=== PATIENT | male | born 1960 | race African-American/Black ===

== ENCOUNTER 2017-01-11 10:33 | Emergency (ER) | payer SELFPAY ==
[~2017-01-11] VITALS: Ht 167.6 cm; Wt 54.0 kg
[2017-01-11 18:31] VITALS: BP 110/70
== END 2017-01-11 18:35 | disposition home or self-care (01) ==
LOC: ED 17:21
DX: F10.229 Alcohol dependence with intoxication, unspecified (principal)
CPT/HCPCS: 99283

== ENCOUNTER 2017-03-05 06:13 | Emergency (ER) | payer MEDICAID ==
[~2017-03-05] VITALS: Ht 180.3 cm; Wt 69.0 kg
[2017-03-05 06:20] VITALS: BP 118/86
[2017-03-05] MEDS ORDERED: ACETAMINOPHEN 325 MG TABLET PO ONE (07:00)
[2017-03-05] MEDS ORDERED: ACETAMINOPHEN 325 MG TABLET ONE (07:37)
== END 2017-03-05 09:09 | disposition home or self-care (01) ==
LOC: ED 08:33
DX: S16.1XXA Strain of muscle, fascia and tendon at neck level, initial encounter (principal); M25.552 Pain in left hip; M25.511 Pain in right shoulder; G40.909 Epilepsy, unspecified, not intractable, without status epilepticus; F10.129 Alcohol abuse with intoxication, unspecified; V59.59XA Passenger in pick-up truck or van injured in collision with other motor vehicles in traffic accident, initial encounter; Y93.89 Activity, other specified; Y92.488 Other paved roadways as the place of occurrence of the external cause; Y99.8 Other external cause status
CPT/HCPCS: 72050; 99284

== ENCOUNTER 2017-03-09 18:48 | Emergency (ER) | payer MEDICAID ==
[~2017-03-09] VITALS: Ht 167.6 cm; Wt 55.0 kg
[2017-03-09 18:50] VITALS: BP 100/64
[2017-03-09] MEDS ORDERED: CYCLOBENZAPRINE 10 MG TABLET ONE (20:02)
[2017-03-09] MEDS ORDERED: CYCLOBENZAPRINE 10 MG TABLET PO STA (20:02)
== END 2017-03-09 20:30 | disposition home or self-care (01) ==
LOC: ED 20:20
DX: S39.012A Strain of muscle, fascia and tendon of lower back, initial encounter (principal); S29.012A Strain of muscle and tendon of back wall of thorax, initial encounter; G40.909 Epilepsy, unspecified, not intractable, without status epilepticus; V49.9XXA Car occupant (driver) (passenger) injured in unspecified traffic accident, initial encounter; Y93.89 Activity, other specified; Y92.89 Other specified places as the place of occurrence of the external cause; Y99.8 Other external cause status
CPT/HCPCS: 72072; 72110; 99284

== ENCOUNTER 2017-03-27 19:12 | Emergency (ER) | payer MEDICAID ==
[~2017-03-27] VITALS: Ht 167.6 cm; Wt 54.8 kg
[2017-03-27] MEDS ORDERED: SODIUM CHLORIDE FLUSH 10ML SYR IVF ONE (19:30)
[2017-03-27] MEDS ORDERED: SODIUM CHLORIDE 0.9% 1,000ML IVBOLUS ONE (19:30)
[2017-03-27 19:58] LABS: BLOOD UREA NITROGEN 11 mg/dL (7-18)
[2017-03-27 20:04] LABS: ANISOCYTOSIS 1+; HYPOCHROMIA 1+; IS PT STATUS REG ER OR PRE ER? YES; POLYCHROMASIA 1+
[2017-03-27 20:06] LABS: TARGET CELLS 1+
[2017-03-27 23:21] VITALS: BP 95/63
== END 2017-03-27 23:30 | disposition home or self-care (01) ==
LOC: ED 20:51
DX: S00.03XA Contusion of scalp, initial encounter (principal); G40.909 Epilepsy, unspecified, not intractable, without status epilepticus; F10.120 Alcohol abuse with intoxication, uncomplicated; W19.XXXA Unspecified fall, initial encounter; Y93.89 Activity, other specified; Y99.8 Other external cause status; Y92.488 Other paved roadways as the place of occurrence of the external cause
CPT/HCPCS: 36415; 70450; 71010; 72125; 80048; 80307; 82040; 84484; 85025; 93005; 96360; 99285; J7030

== ENCOUNTER 2017-04-01 22:47 | Emergency (ER) | payer MEDICAID ==
[~2017-04-01] VITALS: Ht 167.6 cm; Wt 58.0 kg
[2017-04-01 23:53] VITALS: BP 112/74
== END 2017-04-01 23:55 | disposition home or self-care (01) ==
LOC: ED 23:14
DX: S16.1XXA Strain of muscle, fascia and tendon at neck level, initial encounter (principal); G89.29 Other chronic pain; M47.892 Other spondylosis, cervical region; G40.909 Epilepsy, unspecified, not intractable, without status epilepticus; V89.2XXA Person injured in unspecified motor-vehicle accident, traffic, initial encounter; Y93.89 Activity, other specified; Y99.8 Other external cause status; Y92.488 Other paved roadways as the place of occurrence of the external cause
CPT/HCPCS: 99283

== ENCOUNTER 2017-04-07 13:58 | Emergency (ER) | payer MEDICAID ==
[~2017-04-07] VITALS: Ht 172.7 cm; Wt 60.0 kg
[2017-04-07 14:00] VITALS: BP 105/68
== END 2017-04-07 15:28 ==
LOC: ED 14:01
DX: S40.011A Contusion of right shoulder, initial encounter (principal); X58.XXXA Exposure to other specified factors, initial encounter; Y93.89 Activity, other specified; Y99.8 Other external cause status; Y92.89 Other specified places as the place of occurrence of the external cause